=== PATIENT | female | born 1995 | race Caucasian/White ===

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

== ENCOUNTER 2017-11-13 10:36 | Emergency (ER) | payer SELFPAY ==
[~2017-11-13] VITALS: Ht 162.6 cm; Wt 65.5 kg
[~2017-11-13 10:36] MED LIST changes: +MIRENA52 MG IY
[2017-11-13 10:40] VITALS: TEMP 98.1
[2017-11-13 11:02] LABS: COLLECTION METHOD CLEAN CATCH
[2017-11-13 11:18] LABS: PH 7 (5-8); SQUAMOUS EPITHELIAL 0-2 /hpf; URINE APPEARANCE Clear; URINE BACTERIA Rare /hpf; URINE BILIRUBIN Negative (NEGATIVE); URINE BLOOD Negative (NEGATIVE); URINE COLOR Straw; URINE GLUCOSE Negative (NEGATIVE); URINE KETONE Negative (NEGATIVE); URINE LEUKOCYTE ESTERASE Trace (NEGATIVE); URINE NITRATE Negative (NEGATIVE); URINE PROTEIN(semi-quant) Negative (NEGATIVE); URINE RBC 0-2 /hpf; URINE UROBILINOGEN Negative (NEGATIVE)
[2017-11-13 11:40] LABS: BASO % 0.3 % (0.0-2.0); EOS # 0.4 (0.0-0.7); EOS % 3.2 % (0-4.0); GRAN # 7.2 (1.4-6.5); HEMATOCRIT 38.7 % (35.0-45.0); HEMOGLOBIN 12.9 g/dl (12.0-15.0); LYMPH # 2.8 (1.2-3.4); LYMPH % 25.2 % (20.0-51.0); MEAN CELL VOLUME 83 fl (80.0-95.0); MEAN CORPUSCULAR HEMOGLOBIN 28 pg (26.0-32.0); MEAN CORPUSCULAR HGB CONC 33 g/dl (33.0-37.0); MEAN PLATELET VOLUME 10.7 fl (7.4-10.4); MONO # 0.8 (0.1-0.6); MONO % 6.9 % (1.7-9.3); PLATELET COUNT 274 K/mm3 (130-400); RED BLOOD COUNT 4.64 M/mm3 (4.10-5.30); REDCELL DISTRIBUTION WIDTH-CV 13.6 % (11.5-14.5)
[2017-11-13 11:42] LABS: BILIRUBIN,TOTAL 0.6 mg/dL (0.0-1.0); C-REACTIVE PROTEIN 1.1 mg/dL (0.0-0.9); CALCIUM 8.1 mg/dL (8.4-10.2); CREATININE, serum 0.61 mg/dL (0.52-1.25); POTASSIUM 3.9 mmol/L (3.4-5.0); TOTAL PROTEIN 5.6 gm/dL (6.4-8.2)
[2017-11-13] MEDS ORDERED: NORCO 325 MG-51 TAB PO (12:17)
[2017-11-13 12:56] VITALS: BP 116/65; PULSE 66
== END 2017-11-13 12:56 | disposition home or self-care (01) ==
LOC: COL.ER 10:36
PROVIDERS: Emergency Medicine
DX: M54.16 Radiculopathy, lumbar region (principal); F17.210 Nicotine dependence, cigarettes, uncomplicated
CPT/HCPCS: J2270; J2405; J7030

== ENCOUNTER 2019-01-08 15:21 | Emergency (ER) | payer MEDICAID ==
[~2019-01-08] VITALS: Ht 162.6 cm; Wt 71.4 kg
[2019-01-08 15:26] VITALS: BP 145/88; PULSE 101; TEMP 98.2
== END 2019-01-11 15:45 | disposition home or self-care (01) ==
LOC: COL.ER 15:21
DX: T74.21XA Adult sexual abuse, confirmed, initial encounter (principal); S40.022A Contusion of left upper arm, initial encounter; S40.021A Contusion of right upper arm, initial encounter; Y07.59 Other non-family member, perpetrator of maltreatment and neglect

== ENCOUNTER → 2019-01-08 | Outpatient (CLI) | payer MEDICAID ==
[~2019-01-08] MED LIST changes: +NORCO 325 MG-51 TAB PO
== END ==
LOC: LDRO 15:40
DX: Z04.41 Encounter for examination and observation following alleged adult rape (principal)
CPT/HCPCS: J0696

== ENCOUNTER 2019-11-24 13:25 | Emergency (ER) | payer SELFPAY ==
[~2019-11-24] VITALS: Ht 162.6 cm; Wt 60.9 kg
[2019-11-24 13:38] VITALS: BP 108/51; TEMP 98.6
[2019-11-24 16:13] LABS: BASO % 0.3 % (0.0-2.0); EOS # 0.2 (0.0-0.7); EOS % 1.4 % (0-4.0); GRAN # 8.8 (1.4-6.5); GRAN % 73.5 % (42.2-75.2); HEMOGLOBIN 12.4 g/dl (12.5-16.0); LYMPH # 2.2 (1.2-3.4); MEAN CELL VOLUME 86 fl (80.0-100.0); MEAN CORPUSCULAR HEMOGLOBIN 29 pg (27.0-31.0); MEAN CORPUSCULAR HGB CONC 34 g/dl (33.0-37.0); MEAN PLATELET VOLUME 10.4 fl (7.4-10.4); MONO # 0.8 (0.1-0.6); MONO % 6.5 % (1.7-9.3); PLATELET COUNT 306 K/mm3 (130-400); REDCELL DISTRIBUTION WIDTH-CV 13.3 % (11.5-14.5)
[2019-11-24 16:24] LABS: ALBUMIN 3.9 gm/dL (3.5-5.0); BILIRUBIN,TOTAL 1.1 mg/dL (0.0-1.0); CALCIUM 8.7 mg/dL (8.4-10.2); CREATININE, serum 0.68 (0.52-1.25); POTASSIUM 3.7 mmol/L (3.4-5.0); TOTAL PROTEIN 6.8 gm/dL (6.4-8.2)
[2019-11-24 17:19] LABS: COLLECTION METHOD CLEAN CATCH
[2019-11-24 17:26] LABS: MUCOUS Present /lpf; PH 6 (5-8); URINE APPEARANCE Hazy; URINE BACTERIA None Seen /hpf; URINE BILIRUBIN Negative (NEGATIVE); URINE BLOOD 1+ (NEGATIVE); URINE COLOR Yellow; URINE GLUCOSE Negative (NEGATIVE); URINE KETONE 2+ (NEGATIVE); URINE LEUKOCYTE ESTERASE Negative (NEGATIVE); URINE NITRATE Negative (NEGATIVE); URINE PROTEIN(semi-quant) 1+ (NEGATIVE); URINE RBC 0-2 /hpf; URINE UROBILINOGEN >=4.0 mg/dL (NEGATIVE)
[2019-11-24] MEDS ORDERED: ZOFRAN ODT4 MG PO (17:36)
[2019-11-24 18:00] VITALS: PULSE 90
== END 2019-11-24 18:00 | disposition home or self-care (01) ==
LOC: COL.ER 13:25
PROVIDERS: Physician Assistant
DX: E86.0 Dehydration (principal); R11.2 Nausea with vomiting, unspecified; F17.210 Nicotine dependence, cigarettes, uncomplicated; Z91.038 Other insect allergy status
CPT/HCPCS: J2405; J7030

== ENCOUNTER 2019-12-26 03:37 | Emergency (ER) | payer OTHER ==
[~2019-12-26] VITALS: Ht 162.6 cm; Wt 63.6 kg
[~2019-12-26 03:37] MED LIST changes: +ZOFRAN ODT4 MG PO
[2019-12-26 03:41] VITALS: TEMP 98.2
[2019-12-26 04:25] LABS: BASO # 0.1 (0.0-0.2); BASO % 0.3 % (0.0-2.0); EOS # 0.1 (0.0-0.7); EOS % 0.3 % (0-4.0); GRAN # 11.7 (1.4-6.5); GRAN % 77.1 % (42.2-75.2); HEMATOCRIT 44.7 % (37.0-47.0); HEMOGLOBIN 14.7 g/dl (12.5-16.0); LYMPH # 2.5 (1.2-3.4); LYMPH % 16.6 % (20.0-51.0); MEAN CELL VOLUME 86 fl (80.0-100.0); MEAN CORPUSCULAR HEMOGLOBIN 28 pg (27.0-31.0); MEAN CORPUSCULAR HGB CONC 33 g/dl (33.0-37.0); MEAN PLATELET VOLUME 10.1 fl (7.4-10.4); MONO # 0.8 (0.1-0.6); MONO % 5.2 % (1.7-9.3); PLATELET COUNT 376 K/mm3 (130-400); RED BLOOD COUNT 5.23 M/mm3 (4.10-5.30); REDCELL DISTRIBUTION WIDTH-CV 13.6 % (11.5-14.5)
[2019-12-26 04:35] LABS: ALBUMIN 4.5 gm/dL (3.5-5.0); BILIRUBIN,TOTAL 0.8 mg/dL (0.0-1.0); CALCIUM 9.2 mg/dL (8.4-10.2); CREATININE, serum 0.64 (0.52-1.25); POTASSIUM 4.8 mmol/L (3.4-5.0); TOTAL PROTEIN 7.7 gm/dL (6.4-8.2)
[2019-12-26 05:08] LABS: COLLECTION METHOD CLEAN CATCH
[2019-12-26 05:26] LABS: MUCOUS Present /lpf; PH 8 (5-8); SQUAMOUS EPITHELIAL 0-2 /hpf; URINE APPEARANCE Clear; URINE BACTERIA None Seen /hpf; URINE BILIRUBIN Negative (NEGATIVE); URINE BLOOD Negative (NEGATIVE); URINE COLOR Yellow; URINE GLUCOSE Negative (NEGATIVE); URINE KETONE Trace (NEGATIVE); URINE LEUKOCYTE ESTERASE Negative (NEGATIVE); URINE NITRATE Negative (NEGATIVE); URINE PROTEIN(semi-quant) 1+ (NEGATIVE); URINE RBC 0-2 /hpf; URINE UROBILINOGEN Negative (NEGATIVE); URINE WBC 0-2 /hpf
[2019-12-26 05:38] LABS: TRICYCLIC ANTIDEPRESS URINE NEGATIVE
[2019-12-26 06:00] VITALS: PULSE 65
[2019-12-26 06:09] VITALS: BP 104/58
== END 2019-12-26 06:08 | disposition home or self-care (01) ==
LOC: COL.ER 03:37
PROVIDERS: Emergency Medicine
DX: F10.10 Alcohol abuse, uncomplicated (principal); R56.9 Unspecified convulsions; F12.10 Cannabis abuse, uncomplicated; F17.210 Nicotine dependence, cigarettes, uncomplicated
CPT/HCPCS: J1885

== ENCOUNTER → 2020-02-13 | Outpatient (CLI) | payer OTHER | LOC: COL.LAB 10:14 | PROVIDERS: Registered Nurse | DX: Z01.89 Encounter for other specified special examinations (principal) ==

== ENCOUNTER 2020-11-30 18:46 | Emergency (ER) | payer MEDICAID ==
[~2020-11-30] VITALS: Ht 162.6 cm; Wt 65.9 kg
[2020-11-30 18:52] VITALS: TEMP 97
[2020-11-30] MEDS ORDERED: PRENATAL PO (20:37)
[2020-11-30] MEDS ORDERED: ZITHROMAX Z PA250 MG PO (20:37)
[2020-11-30 20:44] VITALS: BP 122/37; PULSE 89
== END 2020-11-30 20:46 | disposition home or self-care (01) ==
LOC: COL.ER 18:46
DX: J40 Bronchitis, not specified as acute or chronic (principal); M79.641 Pain in right hand; Z32.01 Encounter for pregnancy test, result positive; W19.XXXA Unspecified fall, initial encounter

== ENCOUNTER 2020-12-04 12:50 | Emergency (ER) | payer MEDICAID ==
[~2020-12-04] VITALS: Ht 162.6 cm; Wt 65.9 kg
[~2020-12-04 12:50] MED LIST changes: +PRENATAL PO; +ZITHROMAX Z PA250 MG PO
[2020-12-04 13:08] VITALS: BP 125/67; TEMP 98.7
[2020-12-04 14:19] LABS: COLLECTION METHOD CLEAN CATCH
[2020-12-04 14:33] LABS: MUCOUS Present /lpf; PH 6 (5-8); URINE APPEARANCE Hazy; URINE BACTERIA Rare /hpf; URINE BILIRUBIN Negative (NEGATIVE); URINE BLOOD Negative (NEGATIVE); URINE COLOR Yellow; URINE GLUCOSE Negative (NEGATIVE); URINE KETONE Negative (NEGATIVE); URINE LEUKOCYTE ESTERASE Negative (NEGATIVE); URINE NITRATE Negative (NEGATIVE); URINE PROTEIN(semi-quant) Negative (NEGATIVE); URINE RBC 0-2 /hpf; URINE UROBILINOGEN Negative (NEGATIVE)
[2020-12-04 14:53] LABS: BASO % 0.4 % (0.0-2.0); EOS # 0.2 (0.0-0.7); EOS % 1.9 % (0-4.0); GRAN # 8.1 (1.4-6.5); GRAN % 71.8 % (42.2-75.2); HEMOGLOBIN 12.8 g/dl (12.5-16.0); LYMPH # 2.1 (1.2-3.4); MEAN CELL VOLUME 86 fl (80.0-100.0); MEAN CORPUSCULAR HEMOGLOBIN 29 pg (27.0-31.0); MEAN CORPUSCULAR HGB CONC 34 g/dl (33.0-37.0); MEAN PLATELET VOLUME 10.2 fl (7.4-10.4); MONO # 0.7 (0.1-0.6); MONO % 6.5 % (1.7-9.3); PLATELET COUNT 277 K/mm3 (130-400); RED BLOOD COUNT 4.41 M/mm3 (4.10-5.30); REDCELL DISTRIBUTION WIDTH-CV 13.1 % (11.5-14.5)
[2020-12-04 16:15] VITALS: PULSE 87
== END 2020-12-04 16:15 | disposition home or self-care (01) ==
LOC: COL.ER 12:50
PROVIDERS: Family Medicine
DX: O20.9 Hemorrhage in early pregnancy, unspecified (principal); F17.210 Nicotine dependence, cigarettes, uncomplicated; Z3A.00 Weeks of gestation of pregnancy not specified

== ENCOUNTER 2021-07-05 10:55 | Outpatient (CLI) | payer MEDICAID ==
[~2021-07-05] VITALS: Ht 162.6 cm; Wt 75.0 kg
--- NOTE | 2021-07-05 10:45 | NUR ---
Pt arrived on unit via wheelchair with complaints of contractions. Pt reports feeling pain in the lower abdomen every couple minutes starting this morning and worse once at work with some leaking of fluid but denies any bleeding and reports normal movement. EFM and toco monitors started. Vital signs WNL. SVE closed/50/-3 with negative amnio-trace. Plan of care for labor assessment reviewed with pt.
[2021-07-05] MEDS ORDERED: TYLENOL 500MG500 MG PO (10:58)
[2021-07-05 11:50] VITALS: BP 117/63; PULSE 77; TEMP 97.8
--- NOTE | 2021-07-05 11:50 | NUR ---
SVE with no change. Plan for discharge home reviewed with pt. Pt verbalized an understanding.
== END 2021-07-05 12:00 | disposition home or self-care (01) ==
LOC: LDRO 10:55 → LDR 11:45 → LDRO 12:00
DX: Z34.93 Encounter for supervision of normal pregnancy, unspecified, third trimester (principal); Z3A.35 35 weeks gestation of pregnancy

== ENCOUNTER 2021-07-15 06:38 | Inpatient (IN) | payer MEDICAID ==
[~2021-07-15] VITALS: Ht 162.6 cm; Wt 77.7 kg
[2021-07-15] VITALS (57 sets, daily range): BP systolic 92–138; BP diastolic 43–66; PULSE 60–104; TEMP 97.3–98.3
[~2021-07-15 06:38] MED LIST changes: +TYLENOL 500MG500 MG PO
--- NOTE | 2021-07-15 06:55 | NUR ---
Presents to labor and delivery for induction of labor. Assesment done, questions offered and answered. Family at bedside.
--- NOTE | 2021-07-15 07:45 | NUR ---
Rests in bed, alert. Pitocin 2 maryann units iv started as ordered and per policy.
--- NOTE | 2021-07-15 08:00 | NUR ---
Ambulates to the bathroom. Urine obtained for drug screen for marajuana use in . Back to bed.
[2021-07-15 08:29] LABS: BASO # 0.1 K/mm3 (0.0-0.2); BASO % 0.4 % (0.0-2.0); EOS # 0.1 K/mm3 (0.0-0.7); GRAN # 10.1 K/mm3 (1.4-6.5); GRAN % 74.9 % (42.2-75.2); HEMOGLOBIN 11.1 g/dl (12.5-16.0); LYMPH % 14.6 % (20.0-51.0); MEAN CELL VOLUME 85 fl (80.0-100.0); MEAN CORPUSCULAR HEMOGLOBIN 29 pg (27-31); MEAN CORPUSCULAR HGB CONC 34 g/dl (33.0-37.0); MEAN PLATELET VOLUME 11.2 fl (7.4-10.4); MONO # 1.1 K/mm3 (0.1-0.6); MONO % 7.8 % (1.7-9.3); PLATELET COUNT 248 K/mm3 (130-400); RED BLOOD COUNT 3.86 M/mm3 (4.10-5.30); REDCELL DISTRIBUTION WIDTH-CV 12.7 % (11.5-14.5)
--- NOTE | 2021-07-15 08:30 | NUR ---
Rests in bed, alert. Dr. Dooley here, visits with patient and family. Arom done by Dr. Dooley, small amount of clear fluid noted. Pad changed.
[2021-07-15 08:33] LABS: HEMATOCRIT 32.6 % (37.0-47.0)
[2021-07-15 09:03] LABS: TRICYCLIC ANTIDEPRESS URINE NEGATIVE
[2021-07-15] MEDS ORDERED: MOTRIN 800800 MG/TAB PO (09:13)
--- NOTE | 2021-07-15 09:45 | NUR ---
Request to have epidural at 1000 a.m. Let her know that I would let светлана know.
--- NOTE | 2021-07-15 10:05 | NUR ---
Anesthesia here, sits up for epidural. 1012 Single shot given by anesthesia Deidra lin 1018 Test dose given by anesthesia. Lies back down.
--- NOTE | 2021-07-15 11:25 | NUR ---
Dr. Dooley here, vag check done. Reports dilated to three, eighty percent effaced, minus two. Variables down in the 100s for thirty seconds. Repositioned to left side with peanut ball.
--- NOTE | 2021-07-15 11:34 | NUR ---
Ephedrine 10 mg iv given for blood pressure of 102/47 as ordered.
--- NOTE | 2021-07-15 12:15 | NUR ---
Rests in bed with eyes closed. Family at bedside. Ephedrine 10 mg iv given for blood pressure of 103/49.
--- NOTE | 2021-07-15 13:36 | NUR ---
Ibuprofen 1000 mg given as ordered. 1340 Patient states feeling like vomiting. Sits up, throws up. Cool wash cloth given with fan on. Checked for pills in the container, seen two pills at the bottom of the container with emisis. Let her know that we would wait until 15-20 minutes and check to see how she is doing.
--- NOTE | 2021-07-15 15:15 | NUR ---
Rests in bed, alert. Has emisis, small amount. Zofran 4 mg iv given as ordered for nausea.
--- NOTE | 2021-07-15 17:25 | NUR ---
Blood pressure 90/44, ephedrine 10 mg iv given as ordered. Talked with anesthesia about patients low blood pressures. Anesthesia turned down epidural.
--- NOTE | 2021-07-15 18:30 | NUR ---
1830- REPORT REC'D FROM EZE ASTUDILLO/ TRANSFER OF CARE. 30 MLU OF PITOCIN INFUSING. FAMILY AT BS.
--- NOTE | 2021-07-15 22:35 | NUR ---
1836- PT REPORTS SHE IS COMFORTABLE WITH EPIDURAL AND DENIES ANY PAIN AT THIS TIME ONLY PRESSURE. 1854- SVE 6-7/80/-1, POSITION CHANGE. 1924- PT C/O FEELING MORE INTENSE PRESSURE. DILATED 7 CM, MORE BLOODY SHOW NOTED. POSITION CHANGE. 1932- DR. MUÑOZ NOTIFIED OF PT 7-8 CM DILATED AND VERY UNCOMFORTABLE WITH THE URGE TO PUSH AND TO COME TO THE HOSPITAL FOR IMMINENT DELIVERY. PROVIDER EN ROUTE TO HOSPITAL. 1939- PT FEELING LOTS OF PRESSURE AND WOULD LIKE TO PUSH. ENCOURAGED PT TO NOT PUSH YET. SVE /+1, MORE BLOODY SHOW. ENCOURAGED PT TO BREATHE THROUGH CTX. FAMILY AT BS WITH EMOTIONAL SUPPORT. 1944- DR. MUÑOZ PRESENT AT BS. YURIY SMITH. 1947- IV BOLUS FOR DECELERATION. SVE BY DR. MUÑOZ /+1.PT VERY TEARFUL AND INSTRUCTED ON HOW TO PUSH. 1953- PER DR. MUÑOZ DECISION TO APPLY VACUUM. STAFF CALLED TO ROOM. VACUUM APPLIED BY PHYSICIAN.AFTER 20 SECONDS 1 POP OFF AT 1954. VACUUM APPLIED AGAIN AND POP OFF #2 AT 1954. VACUUM OFF AT 1955. 1956- VIABLE FEMALE. INFANT DRIED AND STIMULATED ON MOTHER'S ABDOMEN AND THEN TAKEN TO [facility] WARMER FOR FURTHER EVALUATION. 1999- PLACENTA DELIVERED. PERINEUM INTACT. 2001- PIT BOLUS INFUSING AT 333 ML/HR. 2014- PT SKIN TO SKIN WITH . DENIES ANY PAIN AT THIS TIME. 2024- EPIDURAL PUMP TURNED OFF. 2054- PITOCIN INFUSION COMPLETED. IV SL. FEEDING . 2109- DAD HOLDING BABY. 2124- MOM STILL DENIES ANY PAIN AT THIS TIME. 2139- EPIDURAL CATHETER DC'D. CATHETER TIP INTACT. PT TOLERATED WELL W/O ANY COMPLICATIONS. 2149- PT UP TO BR W/ STANDBY ASSIST. STEADY GAIT. PT ABLE TO VOID. NO C/O DYSURIA. MAO CARE PERFORMED BY PT. NEW MAO PAD APPLIED. EDUCATED PT ON BLEEDING AND WHEN TO NOTIFY RN. PT DEMONSTRATES UNDERSTANDING. S/S OF PPH REVIEWED WITH PT. PT ABLE TO AMBULATE BACK TO BED W/O ANY DIFFICULTIES.
[2021-07-16 00:45] VITALS: BP 90/30; PULSE 76; TEMP 98.2
[2021-07-16 05:03] VITALS: BP 95/38; PULSE 76; TEMP 97.8
[2021-07-16 07:50] VITALS: BP 100/41; PULSE 85; TEMP 97.8
[2021-07-16 12:35] VITALS: BP 91/52; PULSE 68; TEMP 97.4
--- NOTE | 2021-07-16 16:03 | NUR ---
SW informed that patient was positive for substance abuse (Cannibinoids), but baby recently born was negative. SW met with patient to discuss if she had all resources that she needed when time to DC. SW also asked about substance abuse and patient stated that she does not utilize subtance often, and does not need any assistance for addiction or misuse. Patient states that she does have another child the lives with her paternal grandmother in [place]. Patient states that the child is in good care there and was not taken away by any agency, but was taken there by apolinar father. . Nothing further
[2021-07-16 16:30] VITALS: BP 123/50; PULSE 78; TEMP 97.6
[2021-07-16 20:45] VITALS: BP 123/55; PULSE 68; TEMP 97.7
[2021-07-17 08:00] VITALS: BP 114/47; PULSE 57; TEMP 97.7
--- NOTE | 2021-07-17 11:45 | NUR ---
DISCHARGE TEACHING COMPLETED. EDUCATED ON FOLLOW UP APPOINTMENT AND PRESCRIPTION. QUESTIONS INVITED AND ANSWERED.
== END 2021-07-17 12:20 | disposition home or self-care (01) | DRG 806 ==
LOC: OB 06:38 → LDR 06:48 → OB 23:25
PROVIDERS: ADMIT Obstetrics & Gynecology
PROC: 10D07Z6 Extraction of Products of Conception, Vacuum, Via Natural or Artificial Opening (ICD-10-PCS; principal; 2021-07-15)
PROC: 10907ZC Drainage of Amniotic Fluid, Therapeutic from Products of Conception, Via Natural or Artificial Opening (ICD-10-PCS; 2021-07-15)
DX: O36.5930 Maternal care for other known or suspected poor fetal growth, third trimester, not applicable or unspecified (principal); O99.324 Drug use complicating childbirth; Z37.0 Single live birth; O76 Abnormality in fetal heart rate and rhythm complicating labor and delivery; O43.893 Other placental disorders, third trimester; O99.344 Other mental disorders complicating childbirth; F41.3 Other mixed anxiety disorders; F32.A Depression, unspecified; F12.90 Cannabis use, unspecified, uncomplicated; Z3A.37 37 weeks gestation of pregnancy
CPT/HCPCS: OP; J2405; J2590; J7120